=== PATIENT | female | born 1965 | race Caucasian/White ===

== ENCOUNTER 2024-03-10 06:34 | Day surgery (SDC) | payer OTHER, SELFPAY ==
[2024-03-10 12:36] VITALS: BP 110/68; BMI 22.2
[2024-03-10 12:38] VITALS: BMI 22.2
[2024-03-10 14:50] VITALS: BP 106/56
[2024-03-10 15:00] VITALS: BP 98/55
[2024-03-10 15:15] VITALS: BP 83/73
[2024-03-10 15:30] VITALS: BP 113/61
== END 2024-03-10 15:39 | disposition home or self-care (01) ==
LOC: SDS 06:34
PROVIDERS: ATTENDING PHYSICIAN Internal Medicine Gastroenterology
DX: Z12.11 Encounter for screening for malignant neoplasm of colon (principal); K64.0 First degree hemorrhoids; Z98.890 Other specified postprocedural states
CPT/HCPCS: 45380; 88305